=== PATIENT | female | born 1950 ===

== ENCOUNTER → 2020-11-23 | Outpatient (CLI) | payer MEDICARE, OTHER ==
--- NOTE | 2020-11-23 10:23 | MR ---
EXAMINATION TYPE: MR brain wo/w con DATE OF EXAM: 11/23/2020 COMPARISON: MRI brain 10/13/2015 HISTORY: Memory loss, brain tumor TECHNIQUE: Multiplanar, multisequence images of the brain and brainstem is performed without and with IV contras t, utilizing 6.5 mL intravenous Gadavist . FINDINGS: Diffusion weighted images demonstrate no evidence of a recent infarct or other diffusion ab normality. There is no extra-axial fluid collection or significant interval change white matter sign al abnormality. The ventricular system and cisternal spaces are normal in size and appearance. The brain volume is age appropriate. Midline structures demonstrate normal morphology. The craniocervical junction appears within normal limits. Post contrast images demonstrate no abnormal enhancement. The dural venous sinuses appear pa tent. The visualized sinuses are remarkable for possible mucus retention cyst, mild inflammatory live ge in the maxillary sinuses, ethmoid air cells, and the globes are intact. IMPRESSION: Stable nonspecific white matter demyelination. No abnormal enhancement to suggest brain m ass. Mild sinus disease.
== END | disposition home or self-care (01) ==
LOC: RADMRIMAIN 08:28
PROVIDERS: ATTEND Psychiatry & Neurology Neurology
DX: G37.9 Demyelinating disease of central nervous system, unspecified (principal)
CPT/HCPCS: 70553; A9585